=== PATIENT | female | born 1980 | race Caucasian/White ===

== ENCOUNTER 2017-01-23 23:03 | Emergency (ER) | payer OTHER ==
--- NOTE | ~2017-01-23 | CR2 ---
[facility] A Service of [facility] RADIOLOGY TEXT RESULTS PATIENT: ASHLEY GRANGER LOCATION: [facility] : 76 UNIT #: [id number] AGE: [address]: Shahida Long APRN SEX: F ORDER DR: [id number] [place], [place] [address] [id number] E MR#: [id number] Acc #: [id number] NAME: ASHLEY GRANGER : 1980 SEX: F STUDY DATE/TIME: 01/23/2017 22:14 UNIT: [facility] ROOM: STUDY DESCRIPTION: CR Abdomen Acute Series Attending Physician: Shahida Long A.P.R.N. Ordering Physician: Shahida Long A.P.R.N. Primary Care Physician: Primary Care Physician No MEDICAL IMAGING REPORT This report is preliminary unless electronic signature is present EXAM Acute abdomen series 01/23/2017 HISTORY 36-year-old female in the ED complaining of 3-week history of abdomen pain and lower back pain, worsening over the past 2 days. TECHNIQUE Flat and upright abdomen series with AP upright chest x-ray. FINDINGS Bowel gas pattern is normal. No evidence of bowel obstruction, adynamic ileus or bowel perforation. No visible radiopaque abdominal calculi. Chest x-ray shows no active disease. The lungs are expanded and clear. Heart size and pulmonary vascularity are normal. No pleural effusion. Small benign calcified granuloma in left midlung with calcified left hilar lymph nodes. IMPRESSION Negative acute abdomen series. Dictated by... Darryl Veras M.D. THIS IS AN ELECTRONICALLY VERIFIED REPORT Darryl Veras M.D. at 01/24/2017 9:56 PM RGW/aleyda TD: 01/24/2017 11:49 JOB #: [id number] [facility] A Service of [facility] RADIOLOGY TEXT RESULTS PATIENT: ASHLEY GRANGER [id number] 76 UNIT #: [id number] AGE: [address]: Shahida Long APRN SEX: F ORDER DR: MEDICAL IMAGING REPORT COPY
[2017-01-23 22:28] LABS: URINE SOURCE CLEAN CATCH
[2017-01-23 22:34] LABS: URINE APPEARANCE CLEAR; URINE BILIRUBIN NEG (NEG); URINE BLOOD NEG (NEG); URINE COLOR YELLOW; URINE GLUCOSE NEG (NEG); URINE KETONE NEG (NEG); URINE LEUKOCYTE ESTERASE NEG (NEG); URINE NITRATE NEG (NEG); URINE PROTEIN NEG (NEG); URINE SPECIFIC GRAVITY 1.017 (1.003-1.035)
[2017-01-23 22:45] LABS: CULTURE INDICATED? NO
[2017-01-23 22:54] LABS: BASOPHIL# 0.1 X10e3 (0-0.3); BASOPHIL% 0.7 % (0-2.5); EOSINOPHIL# 0.2 X10e3 (0-0.7); EOSINOPHIL% 1.5 % (0.0-7.0); HEMATOCRIT 38.6 % (35.0-45.0); HEMOGLOBIN 12.5 gm/dL (12.0-16.0); LYMPHOCYTE# 4.3 X10e3 (1.0-3.5); LYMPHOCYTE% 29.5 % (17.0-45.0); MEAN CELL VOLUME 83.8 FL (83-96); MEAN CORPUSCULAR HEMOGLOBIN 27.1 PG (28-34); MEAN CORPUSCULAR HGB CONC 32.3 g/dL (30-36); MEAN PLATELET VOLUME 8.5 FL (6.5-11.5); MONOCYTE# 0.9 X10e3 (0-1.0); MONOCYTE% 6.4 % (3.0-12.0); NEUTROPHIL# 9.1 X10e3 (1.5-7.1); NEUTROPHIL% 61.9 % (40-75); PLATELET COUNT 350 X10e3 (140-420); RED CELL DISTRIBUTION WIDTH 14.6 % (11.0-15.5); WHITE BLOOD COUNT 14.7 X10e3 (4.0-10.5)
[2017-01-23 22:56] LABS: DIFF IND NO
[2017-01-23 23:21] LABS: ALBUMIN SERUM 3.7 g/dL (3.5-5.0); ALKALINE PHOSPHATASE 72 U/L (32-92); ALT (SGPT) 18 U/L (10-40); AMYLASE 18 U/L (0-46); AST (SGOT) 20 U/L (10-42); BILIRUBIN,TOTAL 0.4 mg/dL (0.2-2.0); BLOOD UREA NITROGEN 13 mg/dL (9-23); BUN/CREATININE RATIO 16.25; CALCIUM SERUM 8.7 mg/dL (8.4-10.2); CARBON DIOXIDE 22 mmol/L (22-31); CHLORIDE 105 mmol/L (100-111); CREATININE SERUM 0.8 mg/dL (0.6-1.4); GLOM FILT RATE Estimated ABOVE60 mL/min (>60); GLUCOSE FASTING 103 mg/dL (70-110); LIPASE 20 U/L (22-51); POTASSIUM 3.5 mmol/L (3.5-5.1); PROTEIN TOTAL SERUM 7.3 g/dL (6.0-8.3); SODIUM 137 mmol/L (135-145)
[2017-01-26 12:09] LABS: CHLAMYDIA TRACH Not Detected (Not Detected); N GONOR Not Detected (Not Detected)
== END 2017-01-23 23:45 | disposition home or self-care (01) ==
LOC: CFTX 23:03
PROVIDERS: Nurse Practitioner
DX: S39.012A Strain of muscle, fascia and tendon of lower back, initial encounter (principal); N76.0 Acute vaginitis; Z98.51 Tubal ligation status; Z88.2 Allergy status to sulfonamides; X58.XXXA Exposure to other specified factors, initial encounter; Y92.9 Unspecified place or not applicable
CPT/HCPCS: 36415; 74022; 80053; 81003; 82150; 83690; 84703; 85025; 87491; 87591; 87808; 87905; 96372; 99284; J1885